=== PATIENT | female | born 1960 | race Caucasian/White ===

== ENCOUNTER 2022-07-11 16:14 | Emergency (ER) | payer OTHER, SELFPAY ==
--- NOTE | ~2022-07-11 | XR_ITS ---
EXAMINATION: XR foot LT min 3V DATE: 07/11/2022 16:42 INDICATION: Intermittent nontraumatic anteromedial left foot pain TECHNIQUE: Dorsoplantar, two oblique and lateral views of the chest foot were obtained. COMPARISON: None. FINDINGS: Bone alignment is normal. No fracture. Mild osteoarthritis at the first metatarsophalangeal and a few tarsometatarsal and interphalangeal joints. No cortical erosions or periosteal reaction soft tissue swelling lateral to the head of the fifth metatarsal. Soft tissues are otherwise unremarkable. No ank le joint effusion.. IMPRESSION: 1. 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 No acute osseous abnormality. Reviewed, dictated and finalized at location A. IMPRESSION: 1. 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 No acute os seous abnormality.
[2022-07-11 16:20] VITALS: BP 154/82; PULSE 89; RESP 14; TEMP 37.2; O2SAT 100
--- NOTE | 2022-07-11 16:35 | ED.EXTPRO ---
HPI - Extremity Problem General Chief complaint: Extremity Problem,Nontraumatic Stated complaint: left foot pain Time Seen by Provider: 07/11/22 16:35 Source: patient Mode of arrival: ambulatory Limitations: no limitations History of Present Illness HPI Narrative: 61-year-old female presents with pain to dorsal aspect of left foot for approximately 1 week. Denies injury. States she usually has this pain to her right foot that comes and goes But having this pain to left foot is new. patient works at [employer] and reports that she is ambulatory for an hour shifts. Wears tennis shoes. Has not seen her primary care physician for this issue. All systems reviewed and negative except as noted above. Related Data Home Medications Medication Instructions Recorded Confirmed No Home Medications 07/11/22 07/11/22 Allergies Allergy/AdvReac Type Severity Reaction Status Date / Time No Known Allergies Allergy Verified 07/11/22 16:29 Review of Systems Review of Systems: CONSTITUTIONAL: Denies fever, chills, or sweats. EYES: Denies visual changes, redness, or discharge. ENT: Denies rhinorrhea, congestion, sore throat, or otalgia. CARDIOVASCULAR: Denies chest pain, palpitations, or edema. RESPIRATORY: Denies cough or dyspnea. GASTROINTESTINAL: Denies abdominal pain, nausea, vomiting, or diarrhea. GENITOURINARY: Denies dysuria or hematuria. SKIN: Denies rash or itching. MUSCULOSKELETAL: Reports left Foot pain NEUROLOGIC: Denies headache, numbness, or weakness. PSYCHIATRIC: Denies anxiety or depression. All other systems reviewed are negative, except as documented in HPI. PMFSH Comments At time of signature, agree with nursing past medical, surgical, social and family history. There is no relevant family history pertinent to the presenting complaint. Exam Narrative: GENERAL: This is a well-nourished, well-developed patient, in no apparent distress. HEAD: normocephalic, atraumatic. EYES: PERRL. Sclera clear/white. Vision is grossly intact. EARS: External ears normal NOSE: External nose normal NECK: Neck supple, non-tender without lymphadenopathy, masses or thyromegaly. CARDIOVASCULAR: Regular rate and rhythm without murmurs, gallops, or rubs. RESPIRATORY: Clear to auscultation. Breath sounds equal bilaterally. No wheezes, rales, or rhonchi. SKIN: warm, Dry, intact with no suspicious lesions or rash, good texture and turgor. NEURO: awake, alert, and oriented to person, place and time. There were no obvious focal neurologic abnormalities. EXTREMITIES: tenderness to dorsal aspect of foot. No point tenderness. No swelling noted. No skin abnormalities noted such as erythema or warmth. Full range of motion noted. Distal neurovascularly intact. Course Course Level of Care: Express Care Visit Vital Signs Vital signs: Vital Signs Temperature 37.2 C 07/11/22 16:20 Pulse Rate 89 07/11/22 16:20 Respiratory Rate 14 07/11/22 16:20 Blood Pressure 154/82 H 07/11/22 16:20 Pulse Oximetry 100 07/11/22 16:20 Oxygen Delivery Room Air 07/11/22 16:20 Temperature 37.2 C 07/11/22 16:20 Pulse Rate 89 07/11/22 16:20 Respiratory Rate 14 07/11/22 16:20 Blood Pressure 154/82 H 07/11/22 16:20 Pulse Oximetry 100 07/11/22 16:20 Oxygen Delivery Room Air 07/11/22 16:20 reviewed MDM - Extremity (Nontraumatic) MDM Narrative Medical decision making narrative: Patient is aware of diagnosis, understands and agrees to treatment plan. Anticipatory guidance given. Patient agrees to follow-up as directed and is aware of reasons to seek care at the emergency department. Portions of this record may have been created with voice recognition software discussed x-ray results with patient. Discussed osteoporosis diagnosis. Recommend follow-up with Podiatry if pain is not improving. Differential Diagnosis Differential diagnosis: Likely gout, cellulitis and other ( Arthritis, tendinitis) Imag
== END 2022-07-11 17:27 | disposition home or self-care (01) ==
PROVIDERS: Emergency Provider Nurse Practitioner Family
DX: M19.072 Primary osteoarthritis, left ankle and foot (principal)
CPT/HCPCS: 73630; 99213; G0463

== ENCOUNTER 2023-03-29 13:26 | Emergency (ER) | payer OTHER, SELFPAY ==
[2023-03-29 13:32] VITALS: BP 174/80; PULSE 81; RESP 20; TEMP 36.7; O2SAT 100
--- NOTE | 2023-03-29 13:46 | ED.ABDPAIN ---
HPI - Abdominal Pain General Chief Complaint: Abdominal Pain Stated Complaint: Right Side Pain History of Present Illness HPI narrative: patient presents with right upper quadrant pain worse after eating spicy or fried foods and alcohol intake. no abdominal pain at present no nausea and no constipation and no diarrhea. Related Data Allergies Allergy/AdvReac Type Severity Reaction Status Date / Time No Known Allergies Allergy Verified 03/29/23 13:39 Review of Systems Review of Systems: CONSTITUTIONAL: Denies fever, chills, or sweats. EYES: Denies visual changes, redness, or discharge. ENT: Denies rhinorrhea, congestion, sore throat, or otalgia. CARDIOVASCULAR: Denies chest pain, palpitations, or edema. RESPIRATORY: Denies cough or dyspnea. GASTROINTESTINAL: Denies abdominal pain, nausea, vomiting, or diarrhea. GENITOURINARY: Denies dysuria or hematuria. SKIN: Denies rash or itching. MUSCULOSKELETAL: Denies back pain, joint pain, or myalgia. NEUROLOGIC: Denies headache, numbness, or weakness. PSYCHIATRIC: Denies anxiety or depression. PMFSH Comments At time of signature, agree with nursing past medical, surgical, social and family history. There is no relevant family history pertinent to the presenting complaint Exam Narrative: GENERAL: Well-appearing, well-nourished, and in no acute distress. HEAD: Normocephalic, atraumatic. EYES: PERRLA and EOMI. ENT: Nares clear, no rhinorrhea or epistaxis. Mucous membranes moist. NECK: Supple. CHEST: Clear to auscultation. No respiratory distress. HEART: Regular rate and rhythm. No murmur heard. Normal peripheral pulses. ABDOMEN: Soft, nontender, nondistended, normal active bowel sounds. EXTREMITIES: Normal range of motion. No edema. SKIN: Warm, dry, no rash. NEURO: No focal deficits. Alert and oriented x3. Vicki Coma Scale Eye Opening: Spontaneous 4 Vicki Coma Scale Motor: Obeys Commands 6 Vicki Coma Scale Verbal: Oriented 5 Vicki Coma Scale Total 15 Course Course Level of Care: Express Care Visit Vital Signs Vital signs: Vital Signs Temperature 36.7 C 03/29/23 13:32 Pulse Rate 81 03/29/23 13:32 Respiratory Rate 20 03/29/23 13:32 Blood Pressure 174/80 H 03/29/23 13:32 Pulse Oximetry 100 03/29/23 13:32 Oxygen Delivery Room Air 03/29/23 13:32 Temperature 36.7 C 03/29/23 13:32 Pulse Rate 81 03/29/23 13:32 Respiratory Rate 20 03/29/23 13:32 Blood Pressure 174/80 H 03/29/23 13:32 Pulse Oximetry 100 03/29/23 13:32 Oxygen Delivery Room Air 03/29/23 13:32 Please LINDSEY schedule a followup visit with your personal physician for further evaluation and treatment. Including recheck and discussion of your blood pressure. If your symptoms persist, change or worsen significantly before you can contact your personal physician then please, without delay, go to the emergency department for further evaluation Discharge Plan Discharge Instructions: Abdominal Pain (ED) Additional Instructions: Establish care with primary care provider for further testing and labs list provided to patient at today's visit Avoid fried greasy spicy foods Omeprazole as prescribed If any new or worsening symptoms please go to ER immediately further evaluation treatment Prescriptions: New omeprazole 40 mg capsule,delayed release(DR/EC) 40 mg PO DAILY Qty: 30 0RF Follow-up/Referrals: PHYSICIAN,CUTTING AND SPLICING SUPERVISOR [Primary Care Provider] -
== END 2023-03-29 13:49 | disposition home or self-care (01) ==
LOC: EXPBETH 13:30
PROVIDERS: Emergency Provider Nurse Practitioner Family
DX: R10.11 Right upper quadrant pain (principal)
CPT/HCPCS: 99213; G0463

== ENCOUNTER 2024-12-06 08:13 | Emergency (ER) | payer OTHER, SELFPAY ==
--- NOTE | ~2024-12-06 | XR_ITS ---
Right wrist Technique: PA, oblique, lateral, and ulnar deviation views were obtained. Clinical History: Injury Findings: There is acute fracture of the distal radius, with transverse component as well as the endo tracheal components with intra-articular extension. Fracture fragments are nearly nondisplaced. No ot her fracture or dislocation seen.. Joint spaces are preserved. Soft tissues are unremarkable. Impression: Comminuted, nearly nondisplaced fracture the distal radius, with transverse component and intra-artic ular extension, as detailed above. Reviewed, dictated and finalized at location M. Impression: Comminuted, nearly nondisplaced fracture the distal radius, with transverse com ponent and intra-articular extension, as detailed above.
[2024-12-06 08:21] VITALS: BP 173/86; PULSE 92; RESP 16; TEMP 36.1; O2SAT 98
--- OUTSIDE RECORDS SUMMARY | 2024-12-06 08:26 | XMS_ITS | Clinical Summary ---
Author Organization [facility] Address [address] [place] [address] Phone Care Team Providers Care Director Of Physician Practices Name Role Phone Provider, None Primary Care Provider Unavailabl e Allergies No known active allergies Medications Elastic Bandages & Supports (WRIST/THUMB SPLINT/LEFT UNIV) MiscIndications:E xtensor tenosynovitis of left wrist 1 Unspecified by Does not apply route daily. 1 Each o 6 Active Active Problems No known active problems Immunizations Immunization Administration Dates Next Due Influenza Vaccine greater than 3 yrs 06/22/2009 Pneumococcal Vaccine Adult - 23 Valent 1 Tetanus Toxoid, Unspecified Formulation 05/21/20 08 Family History Medical History Relation Name Comments No Known Problems Brother Cancer Father prostate & skin Cirrhosis Mother Asthma Sister Relation Name Status Comments Brother Alive Father Alive Mother Sister Alive Social History Tobacco Use Types Packs/Day Years Used Date Smoking Tobacco: Every Day Cigarettes 0.5 30 Tobacco Cessation:Ready to Q uit: No; Counseling Given: Yes Comments:started 30 years ago Alcohol Use Standard Drinks/Week Comments Yes 33 (1 standard drink = 0.6 oz pu re alcohol) 12 cans per week Sexually Active Control Partners Comments Never Comments No Sex and Gender Information Value Date Recorded Sex Assigned at Not on file Legal Sex Female 8:06 PM CDT Gender Identity Not on file Sexual Orientation Not on file 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 file Not on file Not on file Last Filed Vital Signs Vital Sign Reading Time Taken Comments Blood Pressure 137/98 06/01/2017 11:59 AM CDT Pulse 64 06/01/2017 11:59 AM CDT Temperature 36 C (96.8 F) 06/01/2017 11:59 AM CDT Respiratory Rate 18 06/01/2017 11:59 AM CDT Oxygen Saturation 99% 06/01/2017 11:59 AM CDT Inhaled Oxygen Concentration - - Weight 51.3 kg (113 lb) 06/01/2017 10:55 AM CDT Height 147.3 cm (4' 10 ) 06/01/2017 10:55 AM CDT Body Mass Index 23.62 06/01/2017 10:55 AM CDT Plan of Treatment Health Maintenance Due Date Last Done Comments Hepatitis C Virus (HCV) Screening 1962 Mammogram Unilateral 1962 TdaP Immunization 1962 Pap Smear 1983 Cervical Cancer Screening (CCS) 1992 HPV/Cotest 1992 Cologuard 2012 Immunochemical Fecal Occult Blood 2012 Pneumococcal Immunization (5 0+ years) (2 of 2 - PCV) 2012 06/17/2001 Zoster Immunization (1 of 2) 2012 Influenza Immunization (#1) 2024 06/22/2009 SARS-COV-2 Immunization ( - season) 2024 Colonoscopy 06/01/2027 06/01/2017 Colorectal Cancer Screening 06/01/2027 Respiratory Syncytial Virus (RSV) Immunization (Adult) (1 - 1-dose 75+ series) 2037 06/01/2017 Pneumococcal Immunization Combined Discontinued 2000 Hepatitis B Immunization Aged Out No longer eligible based on patient's age to complete this topic Meningococcal Immunization (ACWY) Aged Out No longer eligible based on patient's age to complete this topic Rotavirus Immunization Aged Out No lo nger eligible based on patient's age to complete this topic Insurance Care Teams Director Of Physician Practices Relationship Specialty Start Date End Date Provider, None [place] PCP - General 03/05/21
--- OUTSIDE RECORDS SUMMARY | 2024-12-06 08:26 | XMS_ITS | Referral Summary ---
Author Organization [address] Address [address] [facility] [address] [place] [address] Care Team Providers Care Cpo Name Role Phone Cheryl Stephenson NP Primary Care Provider [phone] Encounters Date Type Department Care Team Description 11/21/[address] [facility] [address] [facility] [place] [address] Cheryl Stephenson NP Reschedule Appointment from Last 3 Months Allergies No known active allergies Medications cyanocobalamin (Vitamin B-12) 1,000 mcg sublingual tabletIndicatio ns:Vitamin B12 deficiency Take 1 tablet (1,000 mcg total) by mouth daily 90 tablet 1 4 05/29/20 25 Active ergocalciferol (VITAMIN D) 50,000 unit capsuleIndicati ons:Vitamin D deficiency Take 1 capsule (50,000 Units total) by mouth once a week 12 capsule 4 4 05/29/[address] (CYMBALTA) 30 mg capsuleIndicati ons:LAUREANO (generalized anxiety disorder),Neuro demetrio Take 1 capsule (30 mg total) by mouth daily 90 capsule 1 5 11/22/[address] (CYMBALTA) 30 mg capsuleIndicati ons:LAUREANO (generalized anxiety disorder),Neuro demetrio Take 1 capsule (30 mg total) by mouth daily 90 capsule 1 4 11/22/19 25 Discontinu ed(Reorder ) Active Problems Problem Noted Date Diagnosed Date Vitamin B12 deficiency 05/29/2024 Vitamin D deficiency 05/29/2024 Cigarette nicotine dependence without complicati on 05/29/2024 Assessment & Plan (05/29/2024 8:33 AM CDT): Continues to smoke over 3/4 ppd Does not wish to stop at this time Lung cancer screen ordered Alcohol abuse, daily use 05/29/2024 Assessment & Plan (05/29/2024 8:34 AM CDT): Drinks 3-4 beers per day Does not wish to cut back on her drinking at this time Primary osteoarthritis involving multiple joints 10/04/2023 LAUREANO (generalized anxiety disorder) 10/04/2023 Assessment & Plan (05/29/2024 8:33 AM CDT): Chronic, stable Continue Duloxetine 30 mg daily Assessment & Plan (10/04/2023 1:31 PM COTTON CLASSER): Stable, not well controlled States she has always had anxiety and after she went through chemo for her breast cancer she states that it got worse and she will snap at people, especially her sister Start Cymbalta 30 mg daily Neuropathy 10/04/2023 Assessment & Plan (10/04/2023 1:33 PM COTTON CLASSER): Neuropathy s/p chemotherapy and radiation Cymbalta 30 mg daily History of breast cancer 10/04/2023 Immunizations Immunization Administration Dates Next Due Influenza, Quadrivalent, Spl it, Preservative Free, Intramuscular 10/04/2023 Influenza, Trivalent, IM (MDV) 06/22/2009 Influenza, Unspecified 05/24/2024(Deferr ed: Patient Refused),06/20/2022(Deferred: Patient Refused) Pneumococcal Conjugate Pcv20 05/29/2024 Pneumococcal Polysaccharide PPV23 06/17/2001 Social History Tobacco Use Types Packs/Day Years Used Date Smoking Tobacco: Every Day Cigarettes 0.8 40 Smokeless Tobacco: Never Tobacco Cessation:Ready to Q uit: No; Counseling Given: Not Answered Alcohol Use Standard Drinks/Week Comments Yes 0 (1 standard drink = 0.6 oz pur e alcohol) [facility] Utilities Answer Date Recorded In the past 12 months has th e electric, gas, oil, or water company threatened to shut off services in your home? No 05/29/2024 Humiliation, Afraid, Rape, and Kick questionnair e Answer Date Recorded Within the last year, have y ou been afraid of your partner or ex-partner? No 05/29/2024 Within the last year, have y ou been humiliated or emotionally abused in other ways by your partner or ex-partner? No Within the last year, have y ou been kicked, hit, slapped, or otherwise physically hurt by your partner or ex-partner? No 05/29/2024 Within the last year, have y ou been raped or forced to have any kind of sexual activity by your partner or ex-partner? No 05/29/2024 Social Connection and Isolat ion Panel [NHANES] Answer Date Recorded In a typical week, how many times do you talk on the phone with family, friends, or neighbors? More than three times a week 05/29/2024 How often do you get togethe r with friends or relatives? More than three times a week 05/29/2024 How often do you attend chur ch or adventist services? Never 05/29/2024 Do you belong to any clubs o r organizations such as mu-ism groups, unions, fraternal or athletic groups, or school groups? No 05/29/2024 How often do you attend meet ings of the clubs or organizations you belong to? Never 05/29/2024 Are you , , di vorced, , never , or living with a partner? Never 05/29/2024 AUDIT-C Answer Date Recorded Q1: How often do you have a drink containing alcohol? 4 or more times a week 05/29/2024 Q2: How many drinks containi ng alcohol do you have on a typical day when you are drinking? 3 or 4 Q3: How often do you have si x or more drinks on one occasion? Weekly 05/29/2024 Overall Financial Resource Strain (CARDIA) Answe r Date Recorded How hard is it for you to pa y for the very basics like food, housing, medical care, and heating? Not hard at all 05/29/2024 PHQ-2 Answer Date Recorded PHQ-2 Total Score (If total score is 3 or more points, staff should administer the PHQ-9) 0 05/29/2024 [facility] - Occupational Stress Questionnaire Answer Date Recorded Do you feel stress - tense, restless, nervous, or anxious, or unable to sleep at night because your mind is troubled all the time - these days? Rather much 05/29/2024 Exercise Vital Sign Answer Date Recorde d On average, how many days pe r week do you engage in moderate to strenuous exercise (like a brisk walk)? 5 days 05/29/2024 On average, how many minutes do you engage in exercise at this level? 60 min 05/29/2024 Hunger Vital Sign Answer Date Recorded Within the past 12 months, y ou worried that your food would run out before you got the money to buy more. Never true 05/29/20 24 Within the past 12 months, t he food you bought just didn't last and you didn't have money to get more. Never true 05/29/2024 PRAPARE - Transportation Answer Date Re corded In the past 12 months, has l ack of transportation kept you from medical appointments or from getting medications? No 05/2024 In the past 12 months, has l ack of transportation kept you from meetings, work, or from getting things needed for daily living? No 05/29/2024 PHQ-9 Answer Date Recorded PHQ-9 Total Score 0 05/29/2024 Housing Stability Vital Sign Answer Isael e Recorded In the last 12 months, was t here a time when you were not able to pay the mortgage or rent on time? No 05/29/2024 In the past 12 months, how m any times have you moved where you were living? 0 05/29/2024 At any time in the past 12 m [facility], were you homeless or living in a usp (including now)? No 05/29/2024 Comments Unknown Sex and Gender Information Value Date Recorded Sex Assigned at Not on file Legal Sex Female 1:52 AM COTTON CLASSER Gender Identity Not on file Sexual Orientation Not on file Occupation Industry Job Start Date Job End Date Works at [employer] Not on file Not on file Not on file Last Filed Vital Signs Vital Sign Reading Time Taken Comments Blood Pressure 134/82 05/29/2024 8:07 AM CDT Pulse 88 05/29/2024 8:07 AM CDT Temperature 36.6 C (97.8 F) 05/29/2024 8:07 AM CDT Respiratory Rate 16 05/29/2024 8:07 AM CDT Oxygen Saturation 97% 05/29/2024 8:07 AM CDT Inhaled Oxygen Concentration - - Weight 53.1 kg (117 lb) 07/03/2024 8:16 AM CDT Height 147.3 cm (4' 10 ) 07/03/2024 8:16 AM CDT Body Mass Index 24.45 07/03/2024 8:16 AM CDT Plan of Treatment Not on file Procedures Procedure Name Priority Date/Time Associated Diagnosis Comments CT LUNG CANCER SCREENING Schedule Routine, Read Routine (OP Routine) 07/03/2024 8:16 AM CDT Encounter for screening for lung cancer Cigarette nicotine dependence without complication HIGH RISK HPV DNA DETECTION WITH GENOTYPING Routine 11/22/2023 2:52 PM COTTON CLASSER Encounter for well woman exam with routine gynecological exam SCREENING MAMMOGRAM RIGHT W ARELY UNILATERAL ONLY Schedule Routine, Read Routine (OP Routine) 11/18/2023 8:25 AM COTTON CLASSER Screening mammogram for high-risk patient HEPATITIS C ANTIBODY Routine 10/04/2023 1:37 PM COTTON CLASSER Need for hepatitis C screening test from Last 3 Months or Most Recently Relevant to Health Maintenance Results * CT Lung Cancer Screening (07/03/2024 8:16 AM CDT) Anatomical Region Laterality Modality Chest N/A Computed Tomogra phy 07/05/2024 6:38 AM CDT Narrative 07/05/2024 6:47 AM CDT EXAM DESCRIPTION: CT LUNG CANCER SCREENING REASON FOR STUDY: Screening CT of the chest in a current smoker with a 30 pack year smoking history. Additional history: History of breast cancer in 2006 and 2010 with chemotherapy, radiation therapy, and mastectomy.. TECHNIQUE: Low dose CT scan of the chest was performed without intravenous contrast using helical scanning technique. The exam extends from the lung apices through the lung bases. Automatic exposure control was used as a dose optimization technique. NOTE: This study was performed for the specific purposes of lung cancer screening and is not an alternative to diagnostic chest CT. RADIATION DOSE: CT dose index volume (CTDIvol) = 1.22 mGy COMPARISON: 12/06/2023 FINDINGS: SMOKING RELATED LUNG DISEASE: There are hmqa-gf-bhnhiurb emphysematous changes of lungs with scattered mild subsegmental atelectasis and scarring. There are scattered ground-glass centrilobular airspace opacities in the bilateral lungs, which is likely due to smoking-related respiratory bronchiolitis. There is biapical pleural thickening and scarring. There is no definite evidence of a pneumothorax. There is scattered mild bronchial wall thickening, which is likely related to mild chronic bronchitis/bronchiolitis. There is no definite evidence of focal consolidation or pleural effusion. There are reticular airspace opacities noted in the anterior left upper lobe, which is likely related to post radiation/posttreatment changes. There are scattered calcified granulomas noted. LUNG NODULES: There are scattered pulmonary nodules noted. For example, there is a subpleural 0.3 cm pulmonary nodule in the posterior right upper lobe (axial image 37). There is a 0.4 cm ground-glass pulmonary nodule in the lateral right upper lobe (axial image 37). There is a 0.4 cm subpleural ground-glass pulmonary nodule in the lateral right upper lobe (axial image 49). There is a subpleural 0.3 cm pulmonary nodule in the posteromedial right lower lobe (axial image 146). There is a 0.4 cm ground-glass pulmonary nodule in the lateral left upper lobe (axial image 48). There is an irregular subpleural left upper lobe pulmonary nodule measuring 0.7 cm (axial image 83). There is a 0.4 cm ground-glass pulmonary nodule in the central left lower lobe (axial image 119). CORONARY ARTERY CALCIFICATION: Present. OTHER: The heart size is normal. There is no definite evidence of a pericardial effusion. There are minimal atherosclerotic changes of the thoracic aorta and coronary vessels. There is dilatation of main pulmonary artery measuring up to 4.0 cm, which is concerning for pulmonary arterial hypertension. There is no definite unenhanced CT evidence of mediastinal, hilar, or axillary lymphadenopathy. There are scattered subcentimeter mediastinal lymph nodes noted with the largest measuring 0.7 cm in the subcarinal region (axial image 118). There are scattered small calcified mediastinal and left hilar lymph nodes noted. Postsurgical changes of left mastectomy are noted. The visualized portions of the bilateral adrenal glands are grossly unremarkable. There are degenerative changes of the spine. IMPRESSION: Scattered pulmonary nodules with the largest measuring up to 0.7 cm in the left upper lobe, which which are probably benign. Short-term follow-up low-dose chest CT in 6 months is recommended to assess for stability as clinically indicated. Mild to moderate emphysematous changes of lungs with scattered mild subsegmental atelectasis and scarring. Scattered mild bronchial wall thickening, which is likely related to mild chronic bronchitis/bronchiolitis. Scattered ground-glass centrilobular airspace opacities in the bilateral lungs, which is likely due to smoking-related respiratory bronchiolitis. Reticular airspace opacities noted in the anterior left upper lobe, which is likely related to post radiation/posttreatment changes. Lung-RADS category 3: Probably benign. Recommendation: Low dose CT of chest in 6 months. THIS IS AN ELECTRONICALLY VERIFIED FINAL REPORT 07/05/2024 6:47 AM - Electronically signed by Trixie Saenz D.O. PS: PS Report ID: [id number] Reading Location: [id number] Procedure Note Trixie Saenz, DO - 07/05/2024 EXAM DESCRIPTION: CT LUNG CANCER SCREENING REASON FOR STUDY: Screening CT of the chest in a current smoker with a30 pack year smoking history. Additional history: History of breast cancer in 2006 and 2010 with chemotherapy, radiation therapy, and mastectomy.. TECHNIQUE: Low dose CT scan of the chest was performed without intravenous contrast using helical scanning technique. The exam extends from the lung apices through the lung bases. Automatic exposure control was used as adose optimization technique. NOTE: This study was performed for the specific purposes of lung cancer screening and is not an alternative to diagnostic chest CT. RADIATION DOSE: CT dose index volume (CTDIvol) = 1.22 mGy COMPARISON: 12/06/2023 FINDINGS: SMOKING RELATED LUNG DISEASE: There are spol-av-payjwolr emphysematous changes of lungs with scattered mild subsegmental atelectasis andscarring. There are scattered ground-glass centrilobular airspace opacities in the bilateral lungs, which is likely due to smoking-related respiratory bronchiolitis. There is biapical pleural thickening and scarring. Thereis no definite evidence of a pneumothorax. There is scattered mild bronchial wall thickening, which is likely related to mild chronic bronchitis/bronchiolitis. There is no definite evidence of focal consolidation or pleural effusion. There are reticular airspace opacities noted in the anterior left upper lobe, which is likely related to post radiation/posttreatment changes. There are scattered calcifiedgranulomas noted. LUNG NODULES: There are scattered pulmonary nodules noted. For example, there is a subpleural 0.3 cm pulmonary nodule in the posterior right upper lobe (axial image 37). There is a 0.4 cm ground-glass pulmonary nodule inthe lateral right upper lobe (axial image 37). There is a 0.4 cm subpleural ground-glass pulmonary nodule in the lateral right upper lobe (axial image 49). There is a subpleural 0.3 cm pulmonary nodule in the posteromedialright lower lobe (axial image 146). There is a 0.4 cm ground-glass pulmonarynodule in the lateral left upper lobe (axial image 48). There is an irregular subpleural left upper lobe pulmonary nodule measuring 0.7 cm (axial image83). There is a 0.4 cm ground-glass pulmonary nodule in the central left lower lobe (axial image 119). CORONARY ARTERY CALCIFICATION: Present. OTHER: The heart size is normal. There is no definite evidence of a pericardial effusion. There are minimal atherosclerotic changes of the thoracic aorta and coronary vessels. There is dilatation of mainpulmonary artery measuring up to 4.0 cm, which is concerning for pulmonary arterial hypertension. There is no definite unenhanced CT evidence of mediastinal, hilar, oraxillary lymphadenopathy. There are scattered subcentimeter mediastinal lymphnodes noted with the largest measuring 0.7 cm in the subcarinal region (axialimage 118). There are scattered small calcified mediastinal and left hilarlymph nodes noted. Postsurgical changes of left mastectomy are noted. The visualized portions of the bilateral adrenal glands are grossly unremarkable. There are degenerative changes of the spine. IMPRESSION: Scattered pulmonary nodules with the largest measuring up to 0.7 cm inthe left upper lobe, which which are probably benign. Short-term follow-up low-dose chest CT in 6 months is recommended to assess for stability as clinically indicated. Mild to moderate emphysematous changes of lungs with scattered mild subsegmental atelectasis and scarring. Scattered mild bronchial wall thickening, which is likely related to mild chronic bronchitis/bronchiolitis. Scattered ground-glass centrilobular airspace opacities in the bilateral lungs, which is likely due to smoking-related respiratory bronchiolitis. Reticular airspace opacities noted in the anterior left upper lobe, whichis likely related to post radiation/posttreatment changes. Lung-RADS category 3: Probably benign. Recommendation: Low dose CT of chest in 6 months. THIS IS AN ELECTRONICALLY VERIFIED FINAL REPORT 07/05/2024 6:47 AM - Electronically signed by Trixie Saenz D.O. PS: PS Report ID: [id number] Reading Location: [place] [address] Cheryl Stephenson NP IM CT PROCEDURES Final Result * High Risk HPV DNA Detection with Genotyping (Molecular component) (11/22/2023 2:52 PM COTTON CLASSER) HPV HR 16 Not Detected Not Detected [facility] Comment:Testing performed by : [facility], [address] [place]., [address] HPV HR 18 Not Detected Not Detected [facility] Comment:Testing performed by : [facility], [address] [place] [address] HPV HR Non 16/18 Not Detected Not Detected [facility] Comment: Interpretive Data Nucleic acid amplification for detection of high-risk Human Papilloma virus (HPV) is performed by the Ruby Benigno 6800 HPV test. This assay specifically detects HPV-16 and HPV-18 genotypes. The following HPV genotypes are detected as high-risk HPV: HPV-31, 33, 35, ,39, 45, 51, 52, 56, 58, 59, 66, and 68. This assay has been approved by the [place] Food and Drug Administration for detection of HPV in cervical specimens collected by a physician using an endocervical brush/spatula or cervical broom and placed in the ThinPrep Pap Test PreservCyt collection containers. The performance characteristics of this test have been verified by the [facility] Molecular Infectious Disease laboratory. Correlate with separately reported cytology results, as applicable. Interpretive data last revised 23 Testing performed by: [facility], [address] [place]., [address] Endocervical 11/22/2023 2:52 PM COTTON CLASSER 11/23/2023 12:35 PM COTTON CLASSER Narrative [facility] SHELTON - 11/24/2023 1:53 AM COTTON CLASSER Clinical history and diagnosis->[facility] Testing type->Screening Last menstrual period (date if known)->approx 2007 Menstrual status->Postmenopausal us Cheryl Stephenson NP LAB BODY FLUIDS AND STOOLS ORDER GINGER Final Result [facility] [address] Department [place] [address] * SCREENING MAMMOGRAMM RIGHT W ARELY UNILATERAL ONLY (11/18/2023 8:25 AM COTTON CLASSER) Anatomical Region Laterality Modality Breast Right Mammography 11/23/2023 3:11 PM COTTON CLASSER Impressions 11/23/2023 3:11 PM COTTON CLASSER There is no mammographic evidence of malignancy. A 1 year screening mammogram is recommended. BI-RADS: 1 - Negative. The patient has been or will be contacted. The patient will be entered into a reminder system with a target due date of 1 year for her next mammogram. Electronically signed by: Jimbo Muller M.D. Narrative 11/23/2023 3:11 PM COTTON CLASSER EXAMINATION: SCREENING MAMMOGRAM RIGHT W ARELY UNILATERAL ONLY ORDERING HEALTHCARE PROVIDER: CHERYL STEPHENSON HISTORY: Routine screening mammography. Personal history of left breast cancer (initially in 2006 with recurrence in 2010) status post left mastectomy. COMPARISON: 02/05/2015, 02/01/2014, 01/30/2013, 01/26/2012 - [facility] TECHNIQUE: CC and MLO views of the right breast were obtained with digital technique using breast tomosynthesis with C view. Computer aided detection was utilized. FINDINGS: DENSITY: The right breast is heterogeneously dense, which may obscure small masses. BREASTS: There are no suspicious masses, suspicious calcifications, or other suspicious findings in the right breast. There has been no suspicious interval change. us Cheryl Stephenson NP IMG MAMMO PROCEDURES Final Resul t * Hepatitis C antibody Blood (10/04/2023 1:37 PM COTTON CLASSER) Hep C Ab Nonreactive Nonreactive [facility] ([facility]) Comment: Interpretive Data Nonreactive: Antibodies to HCV not detected. Does NOT exclude the possibility of recent exposure to HCV. Equivocal: Equivocal for HCV antibodies. Supplemental molecular testing will be automatically performed to determine infection status in accordance with current CDC screening recommendations. Reactive: Positive for HCV antibodies. This may represent current or past HCV infection. Supplemental molecular testing will be automatically performed to determine current infection status in accordance with current CDC screening recommendations. Interpretive data was last revised on 2019. Testing performed by: [facility], [address] [place] [address]., [id number] Blood 10/04/2023 1:37 PM COTTON CLASSER 10/04/2023 8:20 PM COTTON CLASSER Cheryl Stephenson NP LAB MICROBIOLOGY - GENERAL ORDER GINGER Final Result [facility] ([facility]) [address] [facility] Department [place] [address] from Last 3 Months or Most Recently Relevant to Health Maintenance Insurance [facility] [place] [id number] Care Teams Cpo Relationship Specialty Start Date End Date Cheryl Stephenson NP PCP - General Family Medicine 10/04/23
--- OUTSIDE RECORDS SUMMARY | 2024-12-06 08:26 | XMS_ITS | Clinical Summary ---
Author Organization [address] Address [address] [place] [address] [address] [place] [address] Care Team Providers Care Floor Layer Name Role Phone Cheryl Stephenson NP Primary Care Provider Allergies No known active allergies Medications cyanocobalamin [...] daily Assessment & Plan (10/04/2023 1:31 PM DELIVERY CLERK): Stable, not well controlled States she has always had anxiety and after she went through chemo for her breast cancer she states that it got worse and she will snap at people, especially her sister Start Cymbalta 30 mg daily Neuropathy 10/04/2023 Assessment & Plan (10/04/2023 1:33 PM DELIVERY CLERK): Neuropathy s/p chemotherapy and radiation Cymbalta 30 mg daily History of breast cancer 10/04/2023 Encounters Date Type Department Care Team Description 11/21/2024 [facility]phone [facility] [address] [place] [address] Cheryl Stephenson NP Reschedule Appointment from Last 3 Months Immunizations Immunization Administration Dates Next Due Influenza, Quadrivalent, Spl it, Preservative Free, Intramuscular 10/04/2023 Influenza, Trivalent, IM (MDV) 06/22/2009 Influenza, Unspecified 05/24/2024(Deferr ed: Patient Refused),06/20/2022(Deferred: Patient Refused) Pneumococcal Conjugate Pcv20 05/29/2024 Pneumococcal Polysaccharide PPV23 06/17/2001 Surgical History Surgery Date Site/Laterality Comments OTHER SURGICAL HISTORY 2007 left lumpectomy / lymph node biopsy OTHER SURGICAL HISTORY port placement OTHER SURGICAL HISTORY port removal BREAST SURGERY Medical History Medical History Date Comments Breast cancer (HCC) Anxiety Arthritis 2019 Family History Medical History Relation Name Comments COPD Father Ceasar Nolasco Cancer Father Ceasar Nolasco Hypertension Father Ceasar Nolasco Lung cancer Father Ceasar Nolasco Prostate cancer Father Ceasar Nolasco Cancer, pros briones; Skin cancer Father Ceasar Nolasco cancer, skin; Breast cancer Father's Sister Cancer, malinda ast; Cancer Mother Mel Nolasco Cirrhosis Mother Mel Nolasco Breast cancer Mother's Sister Cancer, malinda ast; Relation Name Status Comments Brother Alive Father Ceasar Nolasco Father's Sister Mother Mel Nolasco Mother's Sister Sister Alive Social History Tobacco Use Types Packs/Day Years Used Date Smoking Tobacco: Every Day Cigarettes 0.8 40 Smokeless Tobacco: Never Tobacco Cessation:Ready to Q uit: No; Counseling Given: Not Answered Alcohol Use Standard Drinks/Week Comments Yes 0 (1 standard drink = 0.6 oz pur e alcohol) [facility] Utilities Answer Date Recorded In the past 12 months has e [employer], gas, oil, or water [employer] threatened to shut off services in your [...] often do you attend chur ch or muslim services? Never 05/29/2024 Do you belong to any clubs o r organizations such as anabaptist groups, unions, fraternal or athletic groups, or [...] staff should administer the PHQ-9) 0 05/29/2024 [facility] - Occupational Stress Questionnaire Answer Date Recorded [...] any time in the past 12 m [facility], were you homeless or living in a [facility] (including now)? No 05/29/2024 Comments Unknown Sex and Gender Information Value Date Recorded Sex Assigned at Not on file Legal Sex Female 1:52 AM DELIVERY CLERK Gender Identity Not on file Sexual Orientation Not on file Occupation Industry Job Start Date Job End Date Works at [employer] Not on file Not on file Not on file Obstetrics History Para Term AB IAB SAB Ectopic Multiple Livin g Live Births 1 1 1 Date Outcome GA Total Labor Labor/2nd/3rd Weight Sex Type Anes PTL Mague A1 A5 Name Clin Term Last Filed Vital Signs Vital Sign Reading [...] 07/03/2024 8:16 AM CDT Plan of Treatment Health Maintenance Due Date Last Done Comments DTaP/Tdap/Td Vaccine (1 - Tdap) 1973 Zoster Vaccine (1 of 2) 2012 Influenza Vaccine (#1) 2024 10/04/2023, 2008 Breast Cancer Screening-Mammogram 11/17/2024 024 Cervical Cancer Screening 11/21/2024 11/22/2023, 12/2023 Regular Well Visit/Exam 18-64 11/21/2024 11/22/2023 Lung Cancer Screening 12/30/2024 07/03/2024 Depression Screening 05/29/2025 05/29/2024, 11/22/2023, 10/04/2023 Colon Cancer Screening-Colonoscopy 06/01/20272016 Hepatitis C Screening Completed 10/04/2023 Hepatitis B Screening Completed 05/24/2024 Pneumococcal vaccine <65 Completed 05/29/2024, 05/22 Procedures Procedure Name Priority Date/Time Associated Diagnosis Comments CT LUNG CANCER SCREENING Schedule Routine, Read Routine (OP Routine) 07/03/2024 8:16 AM CDT Encounter for screening for lung cancer Cigarette nicotine dependence without complication HIGH RISK HPV DNA DETECTION WITH GENOTYPING Routine 11/22/2023 2:52 PM DELIVERY CLERK Encounter for well woman exam with routine gynecological exam SCREENING MAMMOGRAM RIGHT W ARELY UNILATERAL ONLY Schedule Routine, Read Routine (OP Routine) 11/18/2023 8:25 AM DELIVERY CLERK Screening mammogram for high-risk patient HEPATITIS C ANTIBODY Routine 10/04/2023 1:37 PM DELIVERY CLERK Need for hepatitis C screening test from [...] FINDINGS: SMOKING RELATED LUNG DISEASE: There are brsb-bw-lzklnoul emphysematous changes of lungs with scattered mild [...] Trixie Saenz D.O. PS: PS Report ID: [id number] Reading Location: [id number] Procedure Note Trixie Saenz, DO - 07/05/2024 [...] FINDINGS: SMOKING RELATED LUNG DISEASE: There are fijy-au-qjtrzfbw emphysematous changes of lungs with scattered mild [...] Trixie Saenz D.O. PS: PS Report ID: [id number] Reading Location: [place] [address] Cheryl Stephenson NP IM CT PROCEDURES Final Result * High Risk HPV DNA Detection with Genotyping (Molecular component) (11/22/2023 2:52 PM DELIVERY CLERK) HPV HR 16 Not Detected Not Detected [facility] Comment:Testing performed by : [facility], [address] [place] [address]., [id number] HPV HR 18 Not Detected Not Detected [facility] Comment:Testing performed by : [facility], [address] [place] [address]., [id number] HPV HR Non 16/18 Not Detected Not Detected [facility] Comment: Interpretive Data Nucleic acid amplification for [...] this test have been verified by the [facility] Molecular Infectious Disease laboratory. Correlate with separately reported cytology results, as applicable. Interpretive data last revised 23 Testing performed by: [facility], [address] [place]., [address] Endocervical 11/22/2023 2:52 PM DELIVERY CLERK 11/23/2023 12:35 PM DELIVERY CLERK Narrative [facility] - 11/24/2023 1:53 AM DELIVERY CLERK Clinical history and diagnosis->WWE Testing type->Screening Last menstrual period (date if known)->approx 2007 Menstrual status->Postmenopausal us Cheryl Stephenson NP LAB BODY FLUIDS AND STOOLS ORDER GINGER Final Result [facility] [address] [place] [address] * SCREENING MAMMOGRAMM RIGHT W ARELY UNILATERAL ONLY (11/18/2023 8:25 AM DELIVERY CLERK) Anatomical Region Laterality Modality Breast Right Mammography 11/23/2023 3:11 PM DELIVERY CLERK Impressions 11/23/2023 3:11 PM DELIVERY CLERK There is no mammographic evidence of malignancy. A 1 year screening mammogram is recommended. BI-RADS: 1 - Negative. The patient has been or will be contacted. The patient will be entered into a reminder system with a target due date of 1 year for her next mammogram. Electronically signed by: Jimbo Muller M.D. Narrative 11/23/2023 3:11 PM DELIVERY CLERK EXAMINATION: SCREENING MAMMOGRAM RIGHT W ARELY UNILATERAL ONLY ORDERING HEALTHCARE PROVIDER: CHERYL STEPHENSON HISTORY: Routine screening mammography. Personal history of left breast cancer (initially in 2006 with recurrence in 2010) status post left mastectomy. COMPARISON: 02/05/2015, 02/01/2014, 01/30/2013, 01/26/[address] - [facility] TECHNIQUE: CC and MLO views of [...] Hepatitis C antibody Blood (10/04/2023 1:37 PM DELIVERY CLERK) Hep C Ab Nonreactive Nonreactive [facility] Comment: Interpretive Data Nonreactive: Antibodies to HCV [...] last revised on 2019. Testing performed by: [facility], [address] [place] [address], [place]., [address] Blood 10/04/2023 1:37 PM DELIVERY CLERK 10/04/2023 8:20 PM DELIVERY CLERK us Cheryl Stephenson NP LAB MICROBIOLOGY - GENERAL ORDER GINGER Final Result [facility]) [facility] Department [place] [address] from Last 3 Months or Most Recently Relevant to Health Maintenance Insurance [facility] Care Teams Floor Layer Relationship Specialty Start Date End Date Cheryl Stephenson NP PCP - General Family Medicine 10/04/23
--- NOTE | 2024-12-06 08:37 | ED.UPPEXIN ---
HPI - Extremity Injury (Upper) General Chief Complaint: Extremity Injury, Upper Stated Complaint: right wrist injury Time Seen by Provider: 12/06/24 08:34 Source: patient, RN notes reviewed and old records reviewed Mode of arrival: ambulatory Limitations: no limitations History of Present Illness HPI narrative: 64 [facility] old [facility] with complaints of falling down 2-3 steps last night around 1999 and fell onto her right wrist. Patient reports pain and swelling to right wrist with most pain to the radial aspect of her right wrist with decreased mobility noted. MD complaint: injury to: right and wrist Onset (ago): day(s) (since injury last evening) Place: home Severity scale (1-10): 9 Treatments prior to arrival: cold therapy and NSAIDS Related Data Home Medications ?Medication ?Instructions ?Recorded ?Confirmed ?Last Taken ?Type duloxetine 30 mg capsule,delayed mg PO 12/06/24 Unknown History release ergocalciferol (vitamin D2) 1,250 12/06/24 Unknown History mcg (50,000 unit) capsule Allergies Allergy/AdvReac Type Severity Reaction Status Date / Time No Known Allergies Allergy Verified 12/06/24 08:34 Review of Systems Review of Systems: CONSTITUTIONAL: Denies fever, chills, or sweats. EYES: Denies visual changes, redness, or discharge. ENT: Denies rhinorrhea, congestion, sore throat, or otalgia. CARDIOVASCULAR: Denies chest pain, palpitations, or edema. RESPIRATORY: Denies cough or dyspnea. GASTROINTESTINAL: Denies abdominal pain, nausea, vomiting, or diarrhea. GENITOURINARY: Denies dysuria or hematuria. SKIN: Denies rash or itching. MUSCULOSKELETAL: Denies back pain,reports pain to her right wrist with swelling and decreased mobility, or myalgia. NEUROLOGIC: Denies headache, numbness, or weakness. PSYCHIATRIC: Denies anxiety or depression. All systems reviewed & are unremarkable except as noted in HPI and below PMFSH Past Medical History Medical History (Updated 12/06/24 @ 20:25 by Jeanne Dowling NP) Anxiety Breast cancer Surgical History Surgical History (Updated 12/06/24 @ 20:14 by Jeanne Dowling NP) H/O left mastectomy 2010 S/P lumpectomy, left breast 2007 radiation and chemotherapy Social History Social History (Updated 12/06/24 @ 20:20 by Jeanne Dowling NP) Smoking packs per day: 1 Smoking cigarettes per day: 20.0 Smoking status: Current every day smoker Tobacco type: cigarettes Alcohol intake: current Alcohol use details: social Substance use type: does not use Gender identity (if verbalized by the patient): Female Comments At time of signature, agree with nursing past medical, surgical, social and family history. There is no relevant family history pertinent to the presenting complaint Exam Narrative: GENERAL: Well-appearing, well-nourished, and in no acute distress. HEAD: Normocephalic, atraumatic. EYES: PERRLA and EOMI. ENT: Nares clear, no rhinorrhea or epistaxis. Mucous membranes moist. NECK: Supple. no lymphadenopathy CHEST: Clear to auscultation. No respiratory distress. SAO2 98% on room air HEART: Regular rate and rhythm. No murmur heard. Normal peripheral pulses. ABDOMEN: Soft, nontender, nondistended, normal active bowel sounds. EXTREMITIES: Normal range of motion. No edema. Exception noted to pain and swelling to right radial aspect of her wrist with some swelling also into hand with decreased mobility to wrist. sensation is intact, right radial pulse is strong and palpable, finger movement intact. SKIN: Warm, dry, no rash. NEURO: No focal deficits. Alert and oriented x3. Course Course Emergency Course: Patient is aware of diagnosis, understands and agrees to treatment plan.? Anticipatory guidance given.? Patient agrees to follow-up as directed and is aware of reasons to seek care at the emergency department. Portions of this record may have been created with voice recognition software Level of Care: Express Care Visit Vital Signs Vital signs: Vital Signs Temperature 36.1 C L 12/06/24 08:21 Pulse Rate 92 12/06/24 08:21 Respiratory Rate 16 12/06/24 08:21 Blood Pressure 173/86 H 12/06/24 08:21 Pulse Oximetry 98 12/06/24 08:21 Oxygen Delivery Room Air 12/06/24 08:21 Temperature 36.1 C L 12/06/24 08:21 Pulse Rate 92 12/06/24 08:21 Respiratory Rate 16 12/06/24 08:21 Blood Pressure 173/86 H 12/06/24 08:21 Pulse Oximetry 98 12/06/24 08:21 Oxygen Delivery Room Air 12/06/24 08:21 Reviewed MDM - Extremity Injury (Upper) Differential Diagnosis Differential diagnosis: Likely fracture of wrist and other (pain and swelling of left wrist. contusion of wrist and hand) Medical Records Attestation: I reviewed the patient's medical records. Imaging Data Attestation: I personally reviewed and interpreted this imaging study as follows: My impression: Comminuted,nearly non displaced fracture of right distal radius, with transverse component and intra-articular extension Radiologist's impression: [place] [address] XRay Report Signed Patient: Ella Nolasco : 1960 MR#: [id number] Age: 64 Acct:[id number] Loc: [facility] ADM Date: 12/06/24Attending Dr: Ordering Physician: Jeanne Dowling APRN Date of Service: 12/06/24 Procedure(s): XR wrist RT min 3V Accession Number(s): [id number] cc: Sachin, Nery Degroot; Jeanne Dowling APRN~ Right wrist Technique: PA, oblique, lateral, and ulnar deviation views were obtained. Clinical History: Injury Findings: There is acute fracture of the distal radius, with transverse component as well as the endotracheal components with intra-articular extension. Fracture fragments are nearly nondisplaced. No other fracture or dislocation seen.. Joint spaces are preserved. Soft tissues are unremarkable. Impression: Comminuted, nearly nondisplaced fracture the distal radius, with transverse component and intra-articular extension, as detailed above. Reviewed, dictated and finalized at location . Please be advised this is a medical document. It is intended for [id number] communication. It is written in medical language and may contain unfamiliar abbreviations or verbiage. Medical documents are intended to carry relevant information, facts as evident, and the clinical opinion of the practitioner at the time of the encounter. This report may have been done utilizing a voice recognition system. Attempts have been made to correct errors. However, there may be uncorrected grammatical, spelling, and recognition errors present. The file time of this note does not necessarily represent the time of service. Dictated By: Tayo Padilla MD 12/06/24 0848 Signed By: <Electronically signed by Tayo Padilla MD in OV> Critical Care Time Critical Care Time Critical Care Time: No Discharge Plan Discharge Clinical Impression: Closed fracture of distal end of right radius Qualifiers: Encounter type: initial encounter Fracture morphology: unspecified fracture morphology Qualified Code(s): S52.501A - Unspecified fracture of the lower end of right radius, initial encounter for closed fracture Patient Disposition: Home, Self-Care Condition: Stable Instructions: Antibiotic Form, Wrist Fracture in Adults (ED) Additional Instructions: orthopedic splint right wrist to until seen by orthopedic Sling to right arm Tylenol for lesser pain Ibuprofen regularly for the next 2-3 days for the inflammation Follow-up with orthopedic surgeon Dr. Jermaine Rodriguez is ortho on-call please call [phone] to make appointment for follow-up Follow-up with PCP if further problems or concerns Ice to the area 20-30 minutes 4-6 times a day Elevate above heart If your symptoms persist, change or worsen significantly before you can contact your personal physician then please, without delay, go to the emergency department for further evaluation. Follow-up with PCP in 7-10 days or sooner if needed Follow up with PCP soon in regards to your blood pressure which is elevated above threshold for referral. Blood pressure above 120/80 may indicate pre-hypertension. 173/86 Patient Language: Divehi Prescriptions: No Action ergocalciferol (vitamin D2) 1,250 mcg (50,000 unit) capsule duloxetine 30 mg capsule,delayed release(/EC) PO Follow-up/Referrals: Jermaine Rodriguez MD [Physician] - (fracture of right radius) Sachin,Nery Degroot [Primary Care Provider] - Stand Alone Forms: Work/School Release IP Time of Disposition: 09:27 Quality Vicki Coma Scale Eyes: Open Verbal: Oriented and Alert Motor: Follows Commands [place] Coma Total Score: 15
== END 2024-12-06 09:35 | disposition home or self-care (01) ==
PROVIDERS: Emergency Provider Registered Nurse; PCP Nurse Practitioner
DX: S52.501A Unspecified fracture of the lower end of right radius, initial encounter for closed fracture (principal); W10.9XXA Fall (on) (from) unspecified stairs and steps, initial encounter; F17.210 Nicotine dependence, cigarettes, uncomplicated; Z85.3 Personal history of malignant neoplasm of breast; Z90.12 Acquired absence of left breast and nipple; Z92.21 Personal history of antineoplastic chemotherapy; Z92.3 Personal history of irradiation
CPT/HCPCS: 29125; 73110; 99214; A4565; G0463